=== PATIENT | male | born 1965 | race African-American/Black ===

== ENCOUNTER 2020-06-30 00:15 | Inpatient (IN) | payer OTHER ==
[~2020-06-30] VITALS: Ht 170.2 cm; Wt 75.3 kg
[2020-06-30] VITALS (7 sets, daily range): BP systolic 134–151; BP diastolic 78–92
[2020-06-30] MEDS ORDERED: NORVASC10 MG PO (00:30)
[2020-06-30] MEDS ORDERED: CHOLESTEROL MED PO (00:31)
[2020-06-30 01:09] LABS: ABSOLUTE NEUTROPHILS 5.6 thou/uL (1.4-8.2); BASOPHILS 0.4 % (0.0-2.0); EOSINOPHILS 1.1 % (0.0-3.0); HEMATOCRIT 41.3 % (42.0-52.0); LYMPHOCYTES 17.7 % (24.0-44.0); MCH 30.3 pg (26.0-34.0); MCV 89.3 fL (80.0-100.0); MONOCYTES 9.2 % (1.0-8.0); PLATELET COUNT 292 thou/uL (150-400); POLYS 71.6 % (36.0-66.0); RBC 4.63 mil/uL (4.50-6.00); WBC 7.8 thou/uL (4.0-11.0)
[2020-06-30 01:17] LABS: ANION GAP 19 mmol/L (7-16); BUN 14 mg/dL (7-18); CALCIUM 9.2 mg/dL (8.5-10.1); CHLORIDE 102 mmol/L (98-107); CO2 19 mmol/L (21-32); CREATININE 1.2 mg/dL (0.7-1.3); GLUCOSE 91 mg/dL (74-106); SODIUM 140 mmol/L (136-145)
[2020-06-30 01:27] LABS: ALBUMIN 4.1 g/dL (3.4-5.0); SGOT 17 U/L (15-37); SGPT 27 U/L (16-63); TOTAL BILIRUBIN 0.7 mg/dL (0.2-1.0); TOTAL PROTEIN 7.9 g/dL (6.4-8.2); TROPONIN-I <0.06 ng/mL (<0.06)
[2020-06-30] MEDS ORDERED: LIPITOR40 MG PO (05:18)
--- NOTE | 2020-06-30 05:36 | NUR ---
HAND OFF TOOL FAXED
--- NOTE | 2020-06-30 06:06 | NUR ---
NOTIFIED TUTU IN CCU THAT CARDIOLOGY CONSULT WAS NOT CALLED, 2 ATTEMPTS TO ANSWERING SERVICE, THERE WAS NO ANSWER FROM SERVICE AFTER PROLONGED CONTACT
--- NOTE | 2020-06-30 07:07 | EKG ---
[address] [place] [place] [address] ELECTROCARDIOGRAM REPORT Name: NADYA MEI Room #: 202-[facility] IN M.R.#: [id number] Admission: 06/30/20 Attend Phys: Zhen Vargas MD Discharge: Date of : 65 Report #: [id number] 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
--- NOTE | 2020-06-30 07:28 | NUR ---
pt was admitted from ed around 0600, pt is awake, alert and orientedx4, sr on tele, denies chest pain or sob, admission hx, education and assessment completed, no needs at this time passed on report to day RN
[2020-06-30 07:30] LABS: CHOLESTEROL 173 mg/dL (<200); HDL CHOLESTEROL 100 mg/dL (>40); LDL CHOLESTEROL 59 mg/dL (<100); TC:HDL 1.7 Ratio (Not establshd); TRIGLYCERIDE 71 mg/dL (<150); VLDL 14 mg/dL (<40)
[2020-06-30] MEDS ORDERED: ASA81BEC PO (13:31)
== END 2020-06-30 14:33 | disposition home or self-care (01) | DRG 313 ==
LOC: ER 00:15 → EROBS 04:26 → 2N 06:02
PROVIDERS: Emergency Medicine; Nurse Practitioner Family; ADMIT Hospitalist; ATTEND Hospitalist
DX: R07.89 Other chest pain (principal); I10 Essential (primary) hypertension; E78.5 Hyperlipidemia, unspecified; F32.9 Major depressive disorder, single episode, unspecified; F17.210 Nicotine dependence, cigarettes, uncomplicated; F14.10 Cocaine abuse, uncomplicated; F12.10 Cannabis abuse, uncomplicated; F10.10 Alcohol abuse, uncomplicated; Z91.14 Patient's other noncompliance with medication regimen; Z82.49 Family history of ischemic heart disease and other diseases of the circulatory system; Z83.3 Family history of diabetes mellitus; Z79.82 Long term (current) use of aspirin; Z79.899 Other long term (current) drug therapy
CPT/HCPCS: 10081